=== PATIENT | female | born 1955 | race Caucasian/White ===

== ENCOUNTER → 2017-04-07 | Outpatient (CLI) | payer OTHER | LOC: FIMAGING 11:19 | PROVIDERS: ATTEND Internal Medicine | DX: Z12.39 Encounter for other screening for malignant neoplasm of breast (principal); N63 Unspecified lump in breast | CPT/HCPCS: G0204 ==

== ENCOUNTER → 2017-04-18 | Outpatient (CLI) | payer OTHER ==
[~2017-04-18] MED LIST: BUPIVACAINE 0.5% 10 ML SDV ONE; LIDO/EPI 1% **Not for Epidural 20 ML MDV ONE; LIDOCAINE 1% 300 MG/30 ML SDV ONE; THROMBIN (BOVINE) 5,000 UNIT VIAL TP ONE
== END ==
LOC: FIMAGING 07:19
PROVIDERS: ATTEND Internal Medicine
PROC: 0HBT3ZX Excision of Right Breast, Percutaneous Approach, Diagnostic (ICD-10-PCS; principal; 2017-04-18)
DX: C50.911 Malignant neoplasm of unspecified site of right female breast (principal)
CPT/HCPCS: G0206

== ENCOUNTER → 2017-04-28 | Outpatient (CLI) | payer OTHER ==
[~2017-04-28] MED LIST changes: -BUPIVACAINE 0.5% 10 ML SDV ONE; +GADOBUTROL 10 ML VIAL IVP ONE; -LIDO/EPI 1% **Not for Epidural 20 ML MDV ONE; -LIDOCAINE 1% 300 MG/30 ML SDV ONE; -THROMBIN (BOVINE) 5,000 UNIT VIAL TP ONE
== END ==
LOC: FIMAGING 11:38
PROVIDERS: ATTEND Surgery
DX: C50.911 Malignant neoplasm of unspecified site of right female breast (principal)
CPT/HCPCS: 0159T; A9585; C8908

== ENCOUNTER 2017-05-12 09:36 | Day surgery (SDC) | payer OTHER ==
[2017-05-12] MEDS ORDERED: BUPIVACAINE 0.5% 30 ML SDV ONE (09:39)
[2017-05-12] MEDS ORDERED: ceFAZolin 2 GM/DEXTROSE 100 ML IV ONE (10:03)
[2017-05-12] MEDS ORDERED: LIDOCAINE 1% 2 ML INJ ID PRN (10:05)
[2017-05-12] MEDS ORDERED: LR 1,000 ML IV ONE (10:05)
[2017-05-12 10:16] VITALS: PULSE 51
--- NOTE | 2017-05-12 11:43 | PDHPUP ---
History & Physical Update H&P update statement: This history and physical update is based on an assessment of the patient which was completed after admission or registration (within 24 hours), but prior to the surgery/procedure. H&P update: H&P reviewed & patient examined, no change in patient's condition since H&P completed
--- NOTE | 2017-05-12 11:54 | PDANEPAE ---
ANE History of Present Illness R breast lumpectomy. ANE Past Medical History - Cardiovascular History Hx Hypertension: No Hx Arrhythmias: No Hx Chest Pain: No Hx Coronary Artery / Peripheral Vascular Disease: No Hx CHF / Valvular Disease: No Hx Palpitations: No - Pulmonary History Hx COPD: No Hx Asthma/Reactive Airway Disease: No Hx Recent Upper Respiratory Infection: No Hx Oxygen in Use at Home: No Hx Sleep Apnea: No Sleep Apnea Screening Result - Last Documented: Negative - Neurologic History Hx Cerebrovascular Accident: No Hx Seizures: No Hx Dementia: No - Endocrine History Hx Diabetes: No - Renal History Hx Renal Disorders: No - Liver History Hx Hepatic Disorders: No Hepatic History Comment: patient told of "fatty liver" following cholcystectomy - Neurological & Psychiatric Hx Hx Neurological and Psychiatric Disorders: No - Cancer History Hx Cancer: Yes Cancer History Comment: basal cell removed from back of neck - Congenital Disorder History Hx Congenital Disorders: No - GI History Hx Gastrointestinal Disorders: Yes Gastrointestinal History Comment: occ IBSD with stress - Other Health History Other Health History: wears glasses - Chronic Pain History Chronic Pain: No - Surgical History Prior Surgeries: duane 2005. left bunionectomy 1998. 1988. abd laparascopy for endometriosis 1985 ANE Review of Systems - Exercise capacity Exercise capacity: >=4 METS METS (RN): 4 METS - Systems Respiratory: Reports: no symptoms ANE Patient History - Allergies Allergies/Adverse Reactions: No Known Allergies Allergy (Verified 05/11/17 15:14) - Home Medications Home Medications: NK [No Known Home Meds] 05/11/17 [Last Taken Unknown] - NPO status NPO Since - Liquids (Date): 05/11/17 NPO Since - Liquids (Time): 23:55 NPO Since - Solids (Date): 05/11/17 NPO Since - Solids (Time): 22:00 - Anes Hx Anes Hx: slow to awaken from anesthesia - Smoking Hx Smoking Status: Former smoker (smoked 1-3 ppd for five years until 1977) - Alcohol Use Alcohol Use: Rarely - Family Anes Hx Family Anes Hx: neg - N/A Family Hx Anesthesia Complications: none ANE Labs/Vital Signs - Vital Signs Blood Pressure: 121/85 Heart Rate: 51 Respiratory Rate: 16 O2 Sat (%): 97 Height: 177.8 cm Weight: 63.503 kg ANE Physical Exam - Airway Neck exam: FROM Mallampati Score: Class 2 Mouth exam: normal dental/mouth exam - Pulmonary Pulmonary: clear to auscultation - ASA Status ASA Status: II ANE Anesthesia Plan Anesthesia Plan: GA with mask
[2017-05-12] MEDS ORDERED: MIDAZOLAM 2 MG/2 ML VIAL IVP ONE (12:00)
[2017-05-12] MEDS ORDERED: MIDAZOLAM 2 MG/2 ML VIAL ONE (12:02)
[2017-05-12] MEDS ORDERED: PROPOFOL 200 MG/20 ML VIAL ONE ×3 (12:08→12:54)
[2017-05-12] MEDS ORDERED: fentaNYL 100 MCG/2 ML INJ ONE (12:08)
[2017-05-12] MEDS ORDERED: LIDOCAINE/EPINEPHRINE 0.5% 50 ML MDV ONE (12:13)
[2017-05-12] MEDS ORDERED: LIDO/EPI 1% **Not for Epidural 20 ML MDV ONE (12:14)
[2017-05-12] MEDS ORDERED: LIDOCAINE 1% 300 MG/30 ML SDV ONE (12:16)
[2017-05-12] MEDS ORDERED: HYDROCODONE/APAP 5/325 TAB PO PRN (12:49)
[2017-05-12] MEDS ORDERED: fentaNYL 100 MCG/2 ML INJ IVP PRN (12:49)
[2017-05-12] MEDS ORDERED: NALOXONE HCL 0.4 MG/ML INJ IVP PRN (12:49)
--- NOTE | 2017-05-12 13:15 | POSTOPPROG ---
Post Op Note Date of Operation: 05/12/17 Surgeon: Chelsi Vazquez Anesthesiologist: gwendolyn Anesthesia: IV Sedation Pre-op Diagnosis: R breast invasive ductal Post-op Diagnosis: same Indication: 61 year old with invasive ductal Procedure: r lumpectomy with sln Inf/Abcess present in the surg proc area at time of surgery?: No EBL: Minimal Specimen(s): sln, lumpectomy and margins
--- NOTE | 2017-05-12 13:18 | POSTANESTH ---
Post Anesthetic Evaluation Cardiovascular Status: Normal, Stable Respiratory Status: Normal, Stable Level of Consciousness/Mental Status: Can Participate in Eval Pain Control: Adequate, Prn Tx Ordered Nausea/Vomiting Control: Adequate, Prn Tx Ordered Complications Possibly Related to Anesthesia: None Noted
[2017-05-12 13:29] VITALS: TEMP 97.7
--- NOTE | 2017-05-12 14:04 | GOP ---
[f rep st] OPERATIVE REPORT DATE OF OPERATION: 05/12/2017 SURGEON: Chelsi Vazquez MD ANESTHESIA: Dr Duran/monitored anesthesia care with IV sedation. 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 POSTOPERATIVE DIAGNOSIS: Right breast upper outer invasive ductal carcinoma. PROCEDURE PERFORMED: Right breast lumpectomy with right sentinel lymph node. FINDINGS: [place] lymph node negative. SPECIMENS: Lumpectomy sentinel lymph node and additional margins. ESTIMATED BLOOD LOSS: 10 cc. INDICATIONS: The patient is a 61-year-old with a palpable mass in her right breast and has been diagnosed with invasive ductal carcinoma. DESCRIPTION OF PROCEDURE: The patient was brought into the operating room, placed supine on the table, and monitored anesthesia care with IV sedation was performed. Her breast and axilla were prepped and draped in the usual sterile fashion. I infiltrated the area with 0.5% Marcaine mixed with 1% lidocaine. I made an incision beneath the hair-bearing portion of her right axilla. I used electrocautery to dissect down through the subcutaneous tissues. I broke into the axillary space. I used the gamma probe to identify the sentinel lymph node. This was excised and sent to Pathology for frozen. The background was quiet. Hemostasis was achieved. The pathology returned as benign. Next, I made an incision on her right breast and created superior and inferior skin flaps. I dissected down beyond the level of the mass, down to the level of the pectoralis muscle. On a preoperative MRI, there was extension laterally, and so I excised a portion of this, too. This was marked green anterior, red superior, yellow medial, orange lateral, blue inferior, black posterior. It was sent down to Pathology for fresh. I took an additional superior margin inked red, medial margin inked yellow, inferior margin inked blue, lateral margin inked orange, and posterior margin inked black. Hemostasis was achieved. The wound was closed, deep layer with 3-0 Vicryl. Skin was closed with 3-0 Vicryl, followed by 4-0 Monocryl. Mastisol, Steri-Strips, sterile dressings were applied. She was awakened in the operating room, transferred to PACU in stable condition. /[id number]/MODL MTDD
[2017-05-12] MEDS ORDERED: HYDROCODONE/APAP 5/325 TAB ONE ×2 (14:11→14:18)
[2017-05-12 14:27] VITALS: RESP 18
[2017-05-12 14:50] VITALS: BP 120/67; O2SAT 94
== END 2017-05-12 14:50 | disposition home or self-care (01) ==
LOC: FSGY 09:36
PROVIDERS: ATTEND Surgery
PROC: 0HBT0ZZ Excision of Right Breast, Open Approach (ICD-10-PCS; principal; 2017-05-12 12:00)
PROC: 07T50ZZ Resection of Right Axillary Lymphatic, Open Approach (ICD-10-PCS; principal; 2017-05-12 12:00)
DX: C50.411 Malignant neoplasm of upper-outer quadrant of right female breast (principal); Z80.7 Family history of other malignant neoplasms of lymphoid, hematopoietic and related tissues
CPT/HCPCS: 19302; 78195; A9520; J0690; J2250; J2704; J3010

== ENCOUNTER 2017-05-19 07:23 | Day surgery (SDC) | payer OTHER ==
--- NOTE | 2017-05-18 17:39 | GHP ---
[f rep st] PREOP HISTORY AND PHYSICAL DATE OF ADMISSION: 05/19/2017 DATE OF ANTICIPATED PROCEDURE: 05/19/2017. PREOP DIAGNOSIS: Right breast invasive ductal carcinoma. HISTORY OF PRESENT ILLNESS: The patient is a 61-year-old woman who was recently diagnosed with righ t breast invasive ductal carcinoma of the upper outer breast. She developed a palpable mass and oswaldo gnostic mammogram and ultrasound on 04/07/2017 showed a mass in the 10 o'clock position 3 cm from th e nipple measuring 2.2 x 1.5 x 2.2 cm. She had a biopsy on 04/18/2017, revealing invasive ductal ca rcinoma, ER positive, AR negative. The mass was palpable. She underwent right breast lumpectomy wi th sentinel lymph node biopsy on 05/12/2017, which revealed invasive ductal carcinoma, grade 3, maxi mum 2.5 cm. Inferior margin was positive. [place] lymph node was negative for malignancy. Pathol ogic staging pT2 N0. In addition, previous HER-2/ilana by immunochemistry was positive. She presents at this time for re-excision of the inferior margin, as well as port placement. PAST MEDICAL HISTORY: Breast cancer, basal cell carcinoma, hepatic microvesicular steatosis, ALLERGIES: No known drug allergies. SOCIAL HISTORY: She previously smoked tobacco. No current tobacco or recreational drug use. She w orks for [employer]. REVIEW OF SYSTEMS: A 10-point review of systems was negative, aside from HPI. PHYSICAL EXAMINATION: GENERAL: A well-developed, well-nourished woman in no acute distress. HEENT : Normocephalic, atraumatic. No hearing deficits. Pupils equal and round. No scleral icterus. M ucous membranes moist. NECK: Trachea midline. RESPIRATORY: Clear to auscultation bilaterally. N o increased work of breathing. CARDIOVASCULAR: Regular rate. No peripheral edema. SKIN: Warm an d dry. Previous surgical site clean, dry and intact without evidence of infection of right breast. PSYCH: Mood and affect normal. MUSCULOSKELETAL: Normal gait. Normal nails. NEURO: Grossly int act. IMPRESSION AND PLAN: A 61-year-old woman with right breast invasive ductal carcinoma with a positiv e inferior margin. In addition, she is HER-2/ilana positive. She will be taken to the operating room for re-excision of the inferior margin, as well as PowerPort placement of the left side. We discus sed risks of surgery including, but not limited to, heart attack, stroke, blood clots or . We discussed risks of infection, bleeding, need for additional procedures, alteration in cosmesis. We also discussed risk of pneumothorax with port placement. She understands the risks and would like t o proceed. This is an anticipated outpatient procedure. She will receive Ancef on-call to the oper ating room and a chest x-ray in the recovery room. The patient was additionally seen by Dr. Chelsi gonsales. /[id number]/MODL
[2017-05-19] MEDS ORDERED: ceFAZolin 2 GM/DEXTROSE 100 ML IV ONE (07:49)
[2017-05-19] MEDS ORDERED: LIDOCAINE 1% 2 ML INJ ID PRN (08:07)
[2017-05-19] MEDS ORDERED: LR 1,000 ML IV ONE (08:07)
--- NOTE | 2017-05-19 08:31 | PDHPUP ---
History & Physical Update H&P update statement: This history and physical update is based on an assessment of the patient which was completed after admission or registration (within 24 hours), but prior to the surgery/procedure. H&P update: H&P reviewed & patient examined (inferior margin positive for DCIS. ER weakly positive, HI negative, Her 2 Miriam positive. Will need port for chemo )
--- NOTE | 2017-05-19 08:38 | PDANEPAE ---
ANE History of Present Illness RIGHT BREAST biopsy, port placement ANE Past Medical History - Cardiovascular History Hx Hypertension: No Hx Arrhythmias: No Hx Chest Pain: No Hx Coronary Artery / Peripheral Vascular Disease: No Hx CHF / Valvular Disease: No Hx Palpitations: No - Pulmonary History Hx COPD: No Hx Asthma/Reactive Airway Disease: No Hx Recent Upper Respiratory Infection: No Hx Oxygen in Use at Home: No Hx Sleep Apnea: No - Neurologic History Hx Cerebrovascular Accident: No Hx Seizures: No Hx Dementia: No - Endocrine History Hx Diabetes: No - Renal History Hx Renal Disorders: No - Liver History Hx Hepatic Disorders: No Hepatic History Comment: patient told of "fatty liver" following cholcystectomy - Neurological & Psychiatric Hx Hx Neurological and Psychiatric Disorders: No - Cancer History Hx Cancer: Yes Cancer History Comment: basal cell removed from back of neck - Congenital Disorder History Hx Congenital Disorders: No - GI History Hx Gastrointestinal Disorders: Yes Gastrointestinal History Comment: occ IBSD with stress - Other Health History Other Health History: wears glasses - Chronic Pain History Chronic Pain: No - Surgical History Prior Surgeries: duane 2005. left bunionectomy 1998. 1988. abd laparascopy for endometriosis 1985 ANE Review of Systems - Exercise capacity METS (RN): 6 METS ANE Patient History - Allergies Allergies/Adverse Reactions: No Known Allergies Allergy (Verified 05/11/17 15:14) - Anes Hx Anes Hx: no prior problems - Smoking Hx Smoking Status: Former smoker - Family Anes Hx Family Hx Anesthesia Complications: none ANE Labs/Vital Signs - Vital Signs Height: 177.8 cm Weight: 63.049 kg ANE Physical Exam - Airway Neck exam: FROM Mallampati Score: Class 1 Mouth exam: normal dental/mouth exam - Pulmonary Pulmonary: no respiratory distress - Cardiovascular Cardiovascular: regular rate and rhythym - ASA Status ASA Status: II ANE Anesthesia Plan Anesthesia Plan: MAC
[2017-05-19] MEDS ORDERED: MIDAZOLAM 2 MG/2 ML VIAL IVP ONE (08:40)
[2017-05-19] MEDS ORDERED: fentaNYL 100 MCG/2 ML INJ ONE ×3 (08:44→12:38)
[2017-05-19] MEDS ORDERED: PROPOFOL 200 MG/20 ML VIAL ONE ×5 (08:45→11:18)
[2017-05-19] MEDS ORDERED: BUPIVACAINE 0.5% 30 ML SDV ONE (08:46)
[2017-05-19] MEDS ORDERED: LIDOCAINE 1% 300 MG/30 ML SDV ONE (08:46)
--- NOTE | 2017-05-19 09:07 | POSTOPPROG ---
Post Op Note Date of Operation: 05/19/17 Surgeon: Chelsi Vazquez Printer Slotter Operator: xander Anesthesiologist: andrea Anesthesia: IV Sedation Pre-op Diagnosis: R invasive ductal Post-op Diagnosis: same Indication: 61 yo with positive inferior margin, er weakly positive, pr neg , her 2 ilana Procedure: R IJ port. re excise inferior margin Inf/Abcess present in the surg proc area at time of surgery?: No Depth: Superfical (Skin SQ) EBL: 50-100 Specimen(s): inferior margin
[2017-05-19] MEDS ORDERED: fentaNYL 100 MCG/2 ML INJ IVP PRN (11:27)
[2017-05-19] MEDS ORDERED: NALOXONE HCL 0.4 MG/ML INJ IVP PRN (11:27)
[2017-05-19] MEDS ORDERED: OXYCODONE/APAP 5/325 TAB PO PRN (11:27)
[2017-05-19] MEDS ORDERED: ACETAMINOPHEN 500 MG TAB PO PRN (11:27)
[2017-05-19 12:07] VITALS: TEMP 97.7
[2017-05-19 13:17] VITALS: RESP 12
[2017-05-19 14:13] VITALS: BP 148/62; PULSE 60; O2SAT 95
--- NOTE | 2017-05-20 14:54 | GOP ---
[f rep st] OPERATIVE REPORT DATE OF OPERATION: 05/19/2017 SURGEON: Chelsi Vzaquez MD [employer]: None. ANESTHESIA: Sampson Shaikh MD PREOPERATIVE DIAGNOSIS: Right breast invasive ductal carcinoma with positive inferior margin for du ctal carcinoma in situ that is ER weakly positive, CO negative, HER-2/ilana positive. POSTOPERATIVE DIAGNOSIS: Right breast invasive ductal carcinoma with positive inferior margin for d uctal carcinoma in situ that is ER weakly positive, CO negative, HER-2/ilana positive. PROCEDURE PERFORMED: FINDINGS: SPECIMENS: New right breast inferior margin with a stitch indicating the new margin. ESTIMATED BLOOD LOSS: 50 cc. INDICATIONS: The patient is a 61-year-old woman with invasive ductal carcinoma of the right breast. Her inferior margin was positive for ductal carcinoma in situ. She requires re-excision. In jerry tion it is ER weakly positive, CO negative, and HER-2/ilana positive. She will likely require chemoth erapy. DESCRIPTION OF PROCEDURE: The patient was brought into the operating room and placed supine on the table, and general anesthesia was administered. Her bilateral neck and chest were prepped and drape d in the usual sterile fashion. I infiltrated all sites with 0.5% Marcaine prior to making incision . I used the ultrasound to identify her internal jugular vein on the left side of her neck which wa s very small. She was placed in the Trendelenburg position. I found a larger vessel. I accessed t his with dark return of blood flow. I threaded the guidewire which had confirmed placement into the inferior vena cava. I created a pocket to accommodate the port in the left chest. I tunneled the catheter up to the insertion site. I measured it and cut it to size. Using the Seldinger technique , I placed a dilator and sheath over the wire and removed the wire and the dilator. I tried to thre ad the catheter through the sheath but at approximately at 25, it was not threading easily. I perfo rmed fluoroscopy and saw that it was making a right angle under the clavicle. I attempted to place a dilator and sheath again, and again had a difficult time threading through the sheath. I also had to use a Glidewire to access the inferior vena cava. I then called my colleague, Dr. Tres dinh in Radiology to assist. I was able to place the Glidewire back through the sheath and confirmed placement into the IVC. I denisa jesusita used the long dilator and sheath, and placement was confirmed in the Next, I used a catheter. I removed the dilator and placed the catheter through the sheath, and again at around 10 cm on threading, it then had a difficult time. We then performed ultrasound, and it appeared that denisa glez is making an abrupt turn into the subclavian. We attempted another access on the left side but unable to thread the wire. We abandoned the procedure on the left side. Dr. Mack and I then barb bren the catheter on the right side. Please see his note for the full operative dictation. He used a micro-puncture kit to access the vein. We then placed a guidewire, and placement was confirmed in the IVC. I created a pocket to accommodate the port in the right chest and tunneled this up to the insertion site. The port was measured. The catheter was measured and cut to size. A dilator and sheath were placed over the wire and the wire and dilator removed. The catheter was placed through the sheath, and the sheath was removed. Placement was confirmed with fluoroscopy. The port withdre w blood easily and was flushed with heparin. Each pocket was closed with 3-0 Vicryl followed by 4-0 Monocryl and Dermabond applied. I made an incision over her previous scar of her lumpectomy cavity and evacuated the seroma. I used an Allis to grasp additional inferior tissue; I excised this. It was marked with a silk suture. H emostasis was achieved in the cavity. I closed the deep layer with 3-0 Vicryl. I closed the skin w ith 3-0 Vicryl, followed by 4-0 Monocryl. Mastisol, Steri-Strips, and a sterile dressing were appli ed. She was awakened in the operating room and transferred to PACU in stable condition. Her chest x-ray showed no evidence of pneumothorax and the tip of the catheter in the superior vena cava. PROCEDURE PERFORMED: Re-excision right breast inferior margin and attempt at right sided port place ment. /[id number]/MODL
== END 2017-05-19 14:00 | disposition home or self-care (01) ==
LOC: FSGY 07:23
PROVIDERS: ATTEND Surgery
DX: D05.11 Intraductal carcinoma in situ of right breast (principal); Z87.891 Personal history of nicotine dependence
CPT/HCPCS: 19301; 36561; 71010; 76001; C1769; C1788; J0690; J1642; J2250; J2704; J3010

== ENCOUNTER → 2017-11-22 | Outpatient (CLI) | payer OTHER | LOC: FIMAGING 14:43 | PROVIDERS: ATTEND Internal Medicine Hematology & Oncology | DX: Z13.820 Encounter for screening for osteoporosis (principal); M81.0 Age-related osteoporosis without current pathological fracture; Z85.3 Personal history of malignant neoplasm of breast; Z92.21 Personal history of antineoplastic chemotherapy ==

== ENCOUNTER → 2018-04-05 | Outpatient (CLI) | payer OTHER | LOC: FIMAGING 08:56 | PROVIDERS: ATTEND Internal Medicine | DX: M79.604 Pain in right leg (principal); R93.6 Abnormal findings on diagnostic imaging of limbs; Z85.3 Personal history of malignant neoplasm of breast ==

== ENCOUNTER → 2018-05-02 | Outpatient (CLI) | payer OTHER | LOC: FIMAGING 10:12 | PROVIDERS: ATTEND Internal Medicine Hematology & Oncology | DX: Z12.31 Encounter for screening mammogram for malignant neoplasm of breast (principal); Z85.3 Personal history of malignant neoplasm of breast ==